=== PATIENT | female | born 1960 | race Caucasian/White ===

== ENCOUNTER 2018-02-28 11:13 | Observation (INO) | payer OTHER ==
[2018-02-28] VITALS (9 sets, daily range): BP systolic 110–126; BP diastolic 38–68
[~2018-02-28] VITALS: Ht 175.3 cm; Wt 110.2 kg
[~2018-02-28 11:13] MED LIST: METOPROL TAR100 MG PO
[2018-02-28] MEDS ORDERED: ASPIRIN81 MG PO (11:25)
[2018-02-28 11:59] LABS: IMMATURE GRANULOCYTES 0.3 % (0.0-5.0); MEAN CELL VOLUME 90.3 fL CALC (80.0-100.0); MEAN CORPUSCULAR HGB 30.4 pG CALC (26.0-32.0); MEAN CORPUSCULAR HGB CONC 33.6 g/L CALC (32.0-36.0); NEUT# 4.22 thou/uL (2.00-7.15); RED BLOOD COUNT 4.74 mill/uL (4.20-5.60); RED CELL DISTRI WIDTH 12.9 % (11.5-15.5)
[2018-02-28 12:06] LABS: ANION GAP 15 (6-22 (CALC)); BILIRUBIN, TOTAL 0.6 mg/dL (0.0-1.4); BUN 22 mg/dL (7-17); BUN/CREATININE RATIO 26 (12-20 (CALC)); CARBON DIOXIDE 31 mmol/l (22-30); CHLORIDE 102 mmol/l (95-108); CREATININE 0.8 mg/dL (0.5-1.0); GFR > 60 ML/MIN (>=60 (CALC)); GFR FOR AFR.AMER. > 60 ML/MIN (>=60 (CALC)); POTASSIUM 4.3 mmol/l (3.5-5.1); SGOT/AST 50 u/l (14-36); SGPT/ALT 75 u/l (9-52); SODIUM 144 mmol/l (137-146)
[2018-02-28 12:15] LABS: ALBUMIN 4.7 g/dL (3.2-5.0); ALKALINE PHOSPHATASE 106 u/l (38-126); TOTAL PROTEIN 8.4 g/dL (6.3-8.2)
[2018-02-28 12:19] LABS: HEMATOCRIT 42.8 % (37.0-47.0); HEMOGLOBIN 14.4 g/dl (12.0-16.0)
[2018-02-28 14:31] LABS: CHOLESTEROL HDL RATIO 4.5 (<4.4 (CALC))
[2018-02-28 19:01] LABS: URINE BILIRUBIN - DIPSTICK NEGATIVE (NEGATIVE); URINE BLOOD DIPSTICK NEGATIVE (NEGATIVE); URINE COLOR YELLOW; URINE GLUCOSE - DIPSTICK NEGATIVE (NEGATIVE); URINE KETONE NEGATIVE (NEGATIVE); URINE LEUK ESTERASE TRACE (NEGATIVE); URINE NITRITE - DIPSTICK NEGATIVE (Negative); URINE PROTEIN - DIPSTICK NEGATIVE (NEG-TRACE); URINE UROBILINOGEN - DIPSTICK 0.2 E.U./dL (0.2)
[2018-02-28 19:30] LABS: URINE CLARITY CLEAR
[2018-03-01 04:32] VITALS: BP 123/50
[2018-03-01 04:54] LABS: HEMATOCRIT 39.2 % (37.0-47.0); HEMOGLOBIN 12.8 g/dl (12.0-16.0); IMMATURE GRANULOCYTES 0.2 % (0.0-5.0); MEAN CELL VOLUME 91.4 fL CALC (80.0-100.0); MEAN CORPUSCULAR HGB 29.8 pG CALC (26.0-32.0); MEAN CORPUSCULAR HGB CONC 32.7 g/L CALC (32.0-36.0); NEUT# 2.5 thou/uL (2.00-7.15); RED BLOOD COUNT 4.29 mill/uL (4.20-5.60)
[2018-03-01 05:23] LABS: ALKALINE PHOSPHATASE 80 u/l (38-126); ANION GAP 12 (6-22 (CALC)); BILIRUBIN, TOTAL 0.5 mg/dL (0.0-1.4); BUN 18 mg/dL (7-17); BUN/CREATININE RATIO 23 (12-20 (CALC)); CARBON DIOXIDE 28 mmol/l (22-30); CHLORIDE 108 mmol/l (95-108); CREATININE 0.8 mg/dL (0.5-1.0); GFR > 60 ML/MIN (>=60 (CALC)); GFR FOR AFR.AMER. > 60 ML/MIN (>=60 (CALC)); POTASSIUM 4.2 mmol/l (3.5-5.1); SGOT/AST 31 u/l (14-36); SODIUM 142 mmol/l (137-146)
[2018-03-01 05:33] LABS: ALBUMIN 3.4 g/dL (3.2-5.0)
[2018-03-01 07:43] VITALS: BP 111/71
[2018-03-01 08:38] VITALS: BP 92/55
[2018-03-01 08:43] VITALS: BP 119/77
[2018-03-01 08:46] VITALS: BP 120/80
[2018-03-01 09:16] VITALS: BP 120/80
[2018-03-01] MEDS ORDERED: LOPRESSOR 550 MG/TAB PO (10:51)
== END 2018-03-01 10:58 | disposition home or self-care (01) | DRG 305 ==
LOC: ED 11:13 → ED-I 12:47 → ED 12:57 → MS2 12:58
PROVIDERS: Emergency Medicine; ADMIT Internal Medicine Geriatric Medicine; ATTEND Internal Medicine Geriatric Medicine
DX: I10 Essential (primary) hypertension (principal); I24.9 Acute ischemic heart disease, unspecified; M19.90 Unspecified osteoarthritis, unspecified site; Z91.14 Patient's other noncompliance with medication regimen
CPT/HCPCS: G0378

== ENCOUNTER → 2018-08-02 | Outpatient (REF) | payer OTHER ==
[~2018-08-02] MED LIST changes: +ASPIRIN81 MG PO; +LOPRESSOR 550 MG/TAB PO
== END | disposition home or self-care (01) | DRG 305 ==
LOC: LAB 08:52
PROVIDERS: ATTEND Nurse Practitioner Family
DX: I10 Essential (primary) hypertension (principal); R73.9 Hyperglycemia, unspecified; E78.2 Mixed hyperlipidemia